=== PATIENT | female | born 1960 | race Caucasian/White ===

== ENCOUNTER 2025-02-06 17:07 | Emergency (ER) | payer MEDICARE, MEDICAID, SELFPAY ==
[2025-02-06 17:12] VITALS: BP 134/77; PULSE 100; RESP 20; TEMP 36.4; O2SAT 99
[2025-02-06 17:28] VITALS: PULSE 112; O2SAT 99
[2025-02-06 17:37] VITALS: BMI 31.3
--- NOTE | 2025-02-06 17:49 | XR_ITS ---
Examination: CT abdomen and pelvis without contrast. Coronal 3-D reconstructions. Sagittal 2-D reconstructions. Date and time of exam: February 23, 2025, 1821 hours INDICATIONS: Onset right lower abdominal pain today COMPARISON: May 26, 2023 CTDI: vol (mGy): 14.5 DLP: (mGycm): 878 Technique: Axial images of the abdomen have been obtained, 3 mm slice thickness Intravenous contrast material has not been administered. Low dose protocols were performed. One or more of the following dose reduction techniques were used; automated exposure control, adjustment of the mA and/or KV according to patient size, use of iterative reconstruction technique. Findings: No focal liver or splenic lesions Gallstones No pancreatic or adrenal mass Moderate renal scar formation Aortic calcification no aneurysmal dilatation Large amounts of air and stool throughout the colon Normal appendix Localized weakening in the anterior pelvic wall Bladder intact Severe osteopenia IMPRESSION: Cholelithiasis Moderate renal scar formation Normal appendix Localized weakening in the anterior pelvic wall No obstruction
--- NOTE | 2025-02-06 17:50 | PD.EDADULT ---
ED General RME/HPI General Chief complaint: Abdominal Pain Stated complaint: ABD PAIN Time Seen by Provider: 02/06/25 17:49 Arrival date/time: 02/06/25 17:07 CC: Right lower quadrant abdominal pain HPI onset today, denies fever chills no bowel movement in the last 3 days. 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 Daughter at bedside denies fever or chills. No prior history of similar events. Related Data Home Medications ?Medication ?Instructions ?Recorded ?Confirmed hydrochlorothiazide 50 mg tablet 50 mg PO QAM #0 tabs 05/27/17 05/24/23 ropinirole 0.5 mg tablet 0.5 mg PO QAM 01/28/20 05/24/23 metformin 500 mg tablet 500 mg PO BID 04/12/23 05/24/23 ropinirole 1 mg tablet 1 mg PO HS 04/12/23 05/24/23 acetaminophen 325 mg tablet 650 mg PO QID PRN Pain 05/24/23 05/24/23 (Tylenol) aspirin 81 mg chewable tablet 81 mg PO QDAY 05/24/23 05/24/23 atorvastatin 80 mg tablet 80 mg PO QPM 05/24/23 05/24/23 hydrocodone 5 mg-acetaminophen 325 1 tab PO Q6H PRN Pain (Scale Score 05/24/23 05/24/23 mg tablet 7-10) ondansetron 4 mg disintegrating 4 mg PO Q8H PRN Nausea And Vomiting 05/24/23 05/24/23 tablet pantoprazole 40 mg tablet,delayed 40 mg PO QDAY 05/24/23 05/24/23 release Previous Rx's ?Medication ?Instructions ?Recorded blood-glucose sensor (FreeStyle #1 ea 04/15/23 Joseluis 3 Sensor device) rivaroxaban 20 mg tablet 20 mg PO QDAY 30 days #30 tabs 04/15/23 diltiazem HCl 180 mg 180 mg PO QDAY #30 caps 05/27/23 capsule,extended release 24 hr insulin glargine 100 unit/mL 28 unit (0.28 mL) subcut BID #10 mL 05/27/23 subcutaneous solution (Lantus U-100 Insulin) methimazole 10 mg tablet 10 mg PO QDAY #30 tabs 05/27/23 propranolol 10 mg tablet 10 mg PO BID #60 tabs 05/27/23 cephalexin 500 mg capsule 500 mg PO BID #10 caps 11/18/23 docusate calcium 240 mg capsule 240 mg PO QDAY #30 caps 02/06/25 Allergies Allergy/AdvReac Type Severity Reaction Status Date / Time celecoxib Allergy Mild GI UPSET Verified 05/23/23 11:13 codeine Allergy Mild GI UPSET Verified 05/23/23 11:13 medroxyprogesterone Allergy Mild BLOOD CLOT Verified 05/23/23 11:13 pentazocine Allergy Mild HALLUCINATE Verified 05/23/23 11:13 rofecoxib Allergy Mild GI UPSET Verified 05/23/23 11:13 tomato Allergy Mild SORES IN Verified 05/23/23 11:13 MOUTH tramadol Allergy Unknown Verified 05/23/23 11:13 Review of Systems Review of Systems Narrative Review of Systems: GEN: No fever, no chills, no weight loss EYES: No discharge, no visual changes, no pain HEENT: No ear pain, no congestion, no sore throat PULM: No shortness of breath, no cough, no congestion CV: No chest pain, no dyspnea on exertion, no palpitations GI: No nausea, no vomiting, no diarrhea, + pain, no constipation : No frequency, no urgency, no dysuria MUSC/SKEL: No joint pain, no back pain SKIN: No rash PSYCH: No hallucinations, no depression HEME/LYMPH: No easy bleeding or bruising tendencies NEURO: No weakness, no headache ED Exam Narrative Physical exam: [General: Obese in mild discomfort but not in any acute distress Head normocephalic HEENT: Eyes pupils are PERRLA EOMs intact mouth pink dry membranes uvula is midline swallow symmetrical phonation is normal. All other subsystems of HEENT are within acceptable limits Neck is supple nontender Chest equal chest rise nontender to palpation Respiratory: Clear to auscultation no wheezes crackles or rubs CV: Rate rhythm is regular no murmurs rubs or clicks Abdomen is distended secondary to body habitus right lower quadrant tenderness with palpation mild reflexive guarding no rebound tenderness. Skin: Intact no petechiae rash induration ulceration or crepitus Extremities: Moving all extremity against resistance cap refill less than 2 seconds neurosensory intact Neuro: Awake alert oriented x2, person and place Glascow coma 15 no focal deficits] Course Course Course Narrative: CT shows a large amount of stool and gas. Appendix is normal. Localized weakness in the anterior abdominal wall. No other acute finding. Quality Measures none Orders Category Date Time Status Enema Administration NOW Care 02/06/25 20:[address] abdomen pelvis wo con Stat Exams 02/06/25 17:49 Completed B-Type Natriuretic Peptide Stat Lab 02/06/25 17:35 Completed CBC Stat Lab 02/06/25 17:35 Completed Comprehensive Metabolic Panel Stat Lab 02/06/25 17:35 Completed Lipase Stat Lab 02/06/25 17:35 Completed Magnesium Stat Lab 02/06/25 17:35 Completed Partial Thromboplastin Time Stat Lab 02/06/25 17:35 Completed Prothrombin Time with INR Stat Lab 02/06/25 17:35 Completed Vital Signs Vital signs: Vital Signs Temperature 97.6 F 02/06/25 17:12 Pulse Rate 100 02/06/25 17:12 Respiratory Rate 20 02/06/25 17:12 Blood Pressure 134/77 H 02/06/25 17:12 Pulse Oximetry (%) 99 02/06/25 17:12 Oxygen Delivery Method Room Air 02/06/25 17:12 Discharge Plan Plan Patient Disposition: HOME (Self Care) Patient condition on transfer: Stable Prescriptions/Referrals Prescriptions/Med Rec: New docusate calcium 240 mg capsule 240 mg PO QDAY Qty: 30 0RF No Action hydrochlorothiazide 50 MG tablet 50 mg PO QAM Qty: 0 ropinirole 0.5 mg Tablet 0.5 mg PO QAM cephalexin 500 mg capsule 500 mg PO BID Qty: 10 0RF metformin 500 mg tablet 500 mg PO BID Patient Comments: TAKE 1 TABLET BY MOUTH TWICE A DAY WITH MEALS FOR 30 DAYS ropinirole 1 mg tablet 1 mg PO HS Patient Comments: TAKE 1 TABLET BY MOUTH EVERY DAY 1 TO 3 HOURS BEFORE BEDTIME rivaroxaban 20 mg tablet 20 mg PO QDAY 30 Days Qty: 30 6RF Rx Instructions: must administer with evening meal (DME) FreeStyle Joseluis 3 Sensor Device See Rx Instructions .Route Qty: 1 6RF Rx Instructions: As directed atorvastatin 80 mg Tablet 80 mg PO QPM acetaminophen [Tylenol] 325 mg Tablet 650 mg PO QID PRN (Reason: Pain) hydrocodone-acetaminophen 5-325 mg Tablet 1 tab PO Q6H PRN (Reason: Pain (Scale Score 7-10)) pantoprazole 40 mg Tablet,Delayed Release (Dr/Ec) 40 mg PO QDAY ondansetron 4 mg Tablet,Disintegrating 4 mg PO Q8H PRN (Reason: Nausea And Vomiting) aspirin 81 mg tablet,chewable 81 mg PO QDAY insulin glargine [Lantus U-100 Insulin] 100 unit/mL solution 28 unit subcut BID Qty: 10 0RF diltiazem HCl 180 mg Capsule,Extended Release 24hr 180 mg PO QDAY Qty: 30 0RF methimazole 10 mg tablet 10 mg PO QDAY Qty: 30 0RF propranolol 10 mg tablet 10 mg PO BID Qty: 60 0RF Referrals: Raghav Benítez MD [Primary Care Provider, Family Practice] - In 1 week Problem List Clinical Impression: Abdominal pain, Constipation Patient/Caregiver Discharge Instructions Education Materials: Abdominal Pain, ED Constipation (Adult) Print Language: Occitan Stand Alone Forms: Natalee Award Info., Work/School Release, Patient Portal Info Letter PA/[employer]IDEO [employer]ODUCTION INTERN Supervising Physician PA/[employer] INTER[employer] Supervising Physician: Junito Bagley ENP [facility] Clinical Information Provided by: patient Medical Records reviewed [facility] Meds/Rx considered, not ordered None Labs/Rad/Tests considered, not ordered None Chronic Illness/Social Conditions Explain: Diabetes TIA hyperlipidemia left-sided weakness recurrent abdominal pain Labs Labs: interpreted by me Imaging Imaging interpretation: interpreted by me
[2025-02-06 18:09] LABS: Basophils # (Auto) 0.1 Thou/mm3 (0.0-0.2); Basophils % (Auto) 1 % (0-2.5); Eosinophils # (Auto) 0.5 Thou/mm3 (0.0-0.5); Eosinophils % (Auto) 5 % (0-10); Hematocrit 37.8 % (36.0-46.0); Hemoglobin 12.7 g/dL (12.0-16.0); Immature Granulocytes Auto 0.04 Thou/mm3 (0.00-0.00); Lymphocytes # (Auto) 2.9 Thou/mm3 (1.0-4.8); Lymphocytes % (Auto) 25 % (10-50); Mean Corpuscular HGB Conc 33.6 g/dl (31.0-37.0); Mean Corpuscular Hemoglobin 29.5 pg (25.0-35.0); Mean Corpuscular Volume 88 fL (80-100); Monocytes # (Auto) 0.7 Thou/mm3 (0.0-0.8); Monocytes % (Auto) 6 % (0-12); Neutrophils # (Auto) 7.3 Thou/mm3 (1.8-7.7); Neutrophils % (Auto) 64 % (37-80); Nucleated Red Blood Cell # 0.00 Thou/mm3 (0.00-0.00); Nucleated Red Blood Cell % 0 /100 WBC (0); Platelet Count 427 Thou/mm3 (140-440); RDW Standard Deviation 42.5 fL (36.4-46.3); Red Blood Count 4.31 Miln/mm3 (4.00-5.20); White Blood Count 11.4 Thou/mm3 (3.6-11.0)
[2025-02-06 18:28] LABS: INR 1.0 (0.9-1.3); Partial Thromboplastin Time 29.1 Seconds (22.0-36.0); Prothrombin Time 10.8 Seconds (9.0-12.2)
[2025-02-06 18:29] LABS: Alanine Aminotransferase 12 U/L (10-49); Albumin, Serum 4.4 gm/dL (3.4-4.8); Albumin/Globulin Ratio 1.6 (1.2-2.2); Alkaline Phosphatase 114 U/L (46-116); Anion Gap 11 (7-16); Aspartate Amino Transferase 16 U/L (0-34); BUN/Creatinine Ratio 26 Ratio (12-20); Bilirubin,Total 0.2 mg/dL (0.3-1.2); Blood Urea Nitrogen 31 mg/dL (9-23); Calcium 9.4 mg/dL (8.3-10.6); Calcium (Corrected) 9.4 mg/dL (8.5-10.1); Carbon Dioxide 27.3 mMol/L (20.0-31.0); Chloride 104 mMol/L (98-107); Creatinine (Component) 1.2 mg/dL (0.6-1.3); Estimated Creatinine Clearance 54.8 mL/min (>60); Globulin 2.8 gm/dL (2.3-3.5); Glucose 89 mg/dL (74-106); Lipase 33 U/L (12-53); Magnesium 1.4 mg/dL (1.6-2.6); Osmolality,Calculated 288 (275-295); Potassium 3.3 mMol/L (3.4-5.1); Sodium 142 mMol/L (136-145); Total Protein 7.2 gm/dL (5.7-8.2); eGFR 51 See Note
[2025-02-06 18:37] LABS: B-Type Natriuretic Peptide 42 pg/mL (0-100)
[2025-02-06 19:09] VITALS: BP 120/84; PULSE 95; RESP 19; TEMP 37.1; O2SAT 98
[2025-02-06 21:22] VITALS: BP 132/66; PULSE 90; RESP 19; O2SAT 100
== END 2025-02-06 21:33 | disposition home or self-care (01) ==
PROVIDERS: Registered Nurse General Practice; Emergency Provider Family Medicine; PCP Family Medicine
DX: K59.00 Constipation, unspecified (principal)
CPT/HCPCS: 36415; 74176; 80053; 80307; 81001; 83690; 83735; 83880; 85025; 85610; 85730; 99284